=== PATIENT | male | born 1940 | race Caucasian/White ===

== ENCOUNTER → 2017-04-03 | Outpatient (CLI) | payer MEDICARE, BC | LOC: LAB.O 07:29 | PROVIDERS: ATTEND Nurse Practitioner Family | DX: I10 Essential (primary) hypertension (principal); E11.00 Type 2 diabetes mellitus with hyperosmolarity without nonketotic hyperglycemic-hyperosmolar coma (NKHHC) ==

== ENCOUNTER → 2017-10-31 | Outpatient (CLI) | payer MEDICARE, BC ==
--- NOTE | 2017-11-01 12:41 | RAD ---
EXAM DESCRIPTION: Knee,Right Complete CLINICAL HISTORY: 77 years, Male, PAIN IN RIGHT KNEE COMPARISON: None TECHNIQUE: Four views of the right knee with standing views FINDINGS: Total right knee arthroplasty is present. No complicating fracture or dislocation. Bones around the prosthetic components appear normally mineralized with normal trabecular pattern. Normal appearance of medial and lateral compartments on frontal view. Lateral view shows normal position of the patella. Mild posterior superior patellar spurring. Small suprapatellar knee joint effusion. Normal contour of quadriceps and patellar tendons. No abnormal patellar tilt or subluxation on patellar sunrise view. IMPRESSION: Total right knee arthroplasty. Electronically signed by: Carlton Todd MD 11/01/2017 12:39 PM CDT
--- NOTE | 2017-11-01 12:42 | RAD ---
EXAM DESCRIPTION: Pelvis CLINICAL HISTORY: 77 years Male, PAIN IN RIGHT HIP COMPARISON: None. TECHNIQUE: Single AP x-ray view of pelvis and hips FINDINGS: Advanced degenerative disc disease is seen at L4-5 with prominent spurring. Degenerative changes are seen at the SI joints and pubic symphysis. Mild degenerative narrowing of the medial hip joints. No fracture or dislocation. Sacrum appears intact. IMPRESSION: Negative for fracture or dislocation. Electronically signed by: Carlton Todd MD 11/01/2017 12:40 PM CDT
== END ==
LOC: RAD 09:00
PROVIDERS: ATTEND Orthopaedic Surgery
DX: M25.561 Pain in right knee (principal); M25.551 Pain in right hip; Z96.651 Presence of right artificial knee joint

== ENCOUNTER → 2019-11-16 | Outpatient (CLI) | payer MEDICARE, BC ==
--- NOTE | 2019-11-16 17:18 | US ---
EXAM DESCRIPTION: Venous,Lower Extremity RT: ULTRASOUND. CLINICAL HISTORY: THROMBUS COMPARISON: None Available. TECHNIQUE: Sheikh-scale and doppler sonographic evaluation of the deep venous system of the right lower extremity. FINDINGS: Doppler evaluation shows normal color flow and normal phasicity and augmentation of the right common femoral vein, deep femoral vein, femoral vein, popliteal vein, greater saphenous vein, junction with the CFV. Also normal color flow and normal phasicity and augmentation of the peroneal, and posterior tibial vein. The right lower extremity deep veins were completely compressible; normal occlusion with transducer pressure. Sheikh-scale survey showed no echogenic thrombus within these veins. IMPRESSION: 1. Duplex ultrasound evaluation of the right lower extremity deep venous system showing no evidence of thrombosis. Electronically signed by: Jorge Underwood MD 11/16/2019 5:17 PM CDT
== END ==
LOC: US 13:27
PROVIDERS: ATTEND Nurse Practitioner Family
DX: I87.2 Venous insufficiency (chronic) (peripheral) (principal)

== ENCOUNTER 2019-12-05 18:15 | Emergency (ER) | payer MEDICARE, BC ==
[2019-12-05] MEDS ORDERED: IPRATROPIUM BROMIDE NEBS 0.5 MG/2.5 ML VIAL NEB ONE (18:35)
[2019-12-05] MEDS ORDERED: LEVALBUTEROL NEBS 1.25 MG/3 ML VIAL NEB ONE (18:35)
--- NOTE | 2019-12-05 19:03 | RAD ---
EXAM DESCRIPTION: Chest,1 View CLINICAL HISTORY: 79 years Male sob, afib COMPARISON: 01-19 FINDINGS: Heart size appears within normal limits. Density in the lateral left upper lobe concerning for pneumonia. Possibility of underlying mass is not excluded. Question artifact versus small amount of infiltrate in the lateral right midlung. Poor depth of inspiration. No pneumothorax or pleural fluid. IMPRESSION: Abnormal soft tissue in the lateral left upper lobe with an underlying ovoid density. Question pneumonia versus underlying mass. Consider further evaluation with CT Small amount of patchy density also present in the lateral right chest which is indeterminate Electronically signed by: Haydee Barrera MD 12/05/2019 7:02 PM CDT
[2019-12-05] MEDS ORDERED: MAGNESIUM SULFATE PREMIX 2GM 2 GM in PREMIX BAG 1 BAG IVPB ONE (19:09)
[2019-12-05] MEDS ORDERED: METOPROLOL TARTRATE 25 MG TAB PO ONE (19:12)
[2019-12-05] MEDS ORDERED: MAGNESIUM SULFATE PREMIX 2GM 50 ML IVPB ONE (19:18)
--- NOTE | 2019-12-05 20:15 | CT ---
PROCEDURE: Chest w/o Contrast CLINICAL HISTORY: 79 years Male abn cxr, new afib COMPARISON: Chest x-ray study from earlier in the day. TECHNIQUE: Contiguous axial images obtained through the chest without IV contrast. Reformatted images obtained. This exam was performed according to our department optimization program which includes automated exposure control, adjustment of the mA and/or kv according to patient size and/or use of iterative reconstruction technique. FINDINGS: The liver appears slightly heterogeneous. There is a low-density lesion in the left lobe of the liver measuring 0.9 cm which is not characterized on this study. Small hiatal hernia. Coronary artery calcifications. Scattered small lymph nodes in the mediastinum. Atherosclerotic calcifications in the thoracic aorta. There is a spiculated appearing somewhat bilobed mass lesion in the left upper lung. The mass measures approximately 3.1 cm AP diameter by 4.5 cm transverse diameter by 8 cm in height. The lower portion of the mass measures approximately 4.4 cm transverse by 3.1 cm AP by 4.7 cm in height. The mass abuts the lateral left chest wall. There is mild surrounding infiltrate. There may be a small amount of pleural fluid adjacent to the lateral aspect of the mass. No pneumothorax. There are emphysematous changes in the lungs. There is mild scarring/atelectasis in the lungs. There are several small nodular lesions in the right lower lung with the largest measuring 0.5 cm in diameter. There is a calcified granuloma in the right lung with calcified right hilar lymph nodes. IMPRESSION: Mass lesion in the left upper lung with a small amount of surrounding infiltrate. Biopsy is recommended. Small nodular lesions in the right lower lung which are indeterminant. 3. Six month follow-up recommended. The liver appears slightly heterogeneous with a small low-density lesion in the left lobe of the liver which is not completely characterized on this study. Three-phase CT or MRI could be obtained to better evaluate the liver. Electronically signed by: Tk Barrera MD 12/05/2019 8:14 PM CDT
[2019-12-05] MEDS ORDERED: PIPERACILLIN/TAZOBACTAM 3.375 GM in SODIUM CHLORIDE 0.9% 100ML 100 ML IVPB ONE (20:43)
[2019-12-05 20:48] VITALS: BP 135/60; O2SAT 94
--- NOTE | 2019-12-05 20:58 | ED.PDOC ---
History of Present Illness - General Chief Complaint: Respiratory Problem Stated Complaint: Difficulty breathing Time Seen by Provider: 12/05/19 18:16 Source: patient Exam Limitations: no limitations - History of Present Illness Initial Comments: The patient is an 79-year-old male presented emergency room secondary to worsening shortness of breath with mild associated chest tightness particularly over the last couple of days. On further questioning he has had a productive cough and mild shortness of breath for the last 3 or 4 months. He has had intermittent episodes of shortness of breath with exertion. No straight of chest pain. No syncope. No weight loss. He does have a history of COPD, hypertension, type 2 diabetes and low testosterone for which he takes a supplement. 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 The patient is not hypoxic upon arrival but oxygen was applied for comfort. The patient was found to be in atrial fibrillation with RVR with heart rates in the 140s to 150s upon arrival. No known history of any atrial fibrillation. No real fevers. No known coronavirus exposure. Timing/Duration: unsure Severity: moderate Improving Factors: nothing Worsening Factors: movement Associated Symptoms: cough, malaise, shortness of breath Allergies/Adverse Reactions: Allergies NO KNOWN ALLERGY Allergy (Verified 01/21/14 13:14) Home Medications: Ambulatory Orders Albuterol Inhaler [Ventolin Hfa Inhaler] 1 puff INH PRN #0 09/09/13 Albuterol Sulfate 0.083 % IN PRN #0 09/09/13 Hydrochlorothiazide 25 mg PO AM #0 09/09/13 Metformin HCl 500 mg PO NOON #0 09/09/13 Multiple Vitamins W/ Minerals [Centrum Silver] 1 tab PO AM #0 09/09/13 Testosterone Cypionate 100 mg IM PRN #0 09/09/13 Carvedilol 12.5 mg PO DAILY 12/05/19 Furosemide 20 mg PO DAILY 12/05/19 Losartan Potassium 100 mg PO DAILY 12/05/19 Sitagliptin-Metformin HCl [Janumet] 1 tab PO BID 12/05/19 Review of Systems - Review of Systems Constitutional: States: malaise, weakness - Generalized EENTM: States: no symptoms reported Respiratory: States: cough, short of breath Cardiology: States: other - Shortness of breath Gastrointestinal/Abdominal: States: no symptoms reported Genitourinary: States: no symptoms reported Musculoskeletal: States: no symptoms reported Skin: States: no symptoms reported Neurological: States: no symptoms reported Endocrine: States: no symptoms reported All other Systems: No Change from Baseline Past Medical History (General) - Patient Medical History Hx Seizures: No Hx Stroke: No Hx Asthma: No Hx of COPD: Yes Hx Cardiac Disorders: Yes Hx Congestive Heart Failure: No Hx Pacemaker: No Hx Hypertension: Yes Hx Diabetes: Yes Hx Gastroesophageal Reflux: Yes Hx Cancer: No Hx Hepatitis C: No Hx MRSA: No - Vaccination History Hx Tetanus, Diphtheria Vaccination: Yes Hx Influenza Vaccination: Yes Hx Pneumococcal Vaccination: Yes - Social History Hx Tobacco Use: Yes Hx Alcohol Use: No Hx Substance Use: No Hx Physical Abuse: No Hx Emotional Abuse: No - Female History Patient is a Female of Child Bearing Age (10 -59 yrs old): No Family Medical History - Family History Father Living Status: Hx Family Cancer: Yes Physical Exam - Physical Exam General Appearance: Alert, Anxious, Obvious distress Eye Exam: bilateral normal Ears, Nose, Throat: hearing grossly normal - Chronic decreased hearing bilaterally, normal pharynx Neck: full range of motion, supple Respiratory: rales - Mild on the left midlung, other - Mild increased work of breathing. No wheezes. Cardiovascular/Chest: normal peripheral pulses, no edema, irregularly irregular - Tachycardic Peripheral Pulses: radial,right: 2+, radial,left: 2+ Gastrointestinal/Abdominal: non tender, soft Rectal Exam: deferred Back Exam: no CVA tenderness, no vertebral tenderness Extremity: non-tender, normal inspection, no pedal edema, normal capillary refill Neurologic: director technical II-XII nml as tested, alert, normal mood/affect, oriented x 3 Skin Exam: normal color Comments: Vital Signs - 24 hr 12/05/19 12/05/19 12/05/19 18:34 18:54 19:14 Temperature 98.8 F 97.5 F L Pulse Rate [ 105 H 105 H 107 H Left Brachial] Respiratory 20 20 20 Rate Blood Pressure 120/87 123/83 [Left Arm] O2 Sat by Pulse 95 96 Oximetry 12/05/19 20:47 Temperature Pulse Rate [ 85 Left Brachial] Respiratory 18 Rate Blood Pressure 135/60 [Left Arm] O2 Sat by Pulse 94 L Oximetry Progress - Progress Progress: 12/05/19 21:01 The patient is an 79-year-old male presented emergency room secondary to shortness of breath essentially. The patient has mild acute renal insufficiency when compared to his previous laboratory work. This is likely related to diuretics that he takes. The patient has what is most likely secondary polycythemia and may yet need phlebotomy in the near future. More problematic is that the patient has new atrial fibrillation with rapid ventricular rate. He has responded well to a dose of oral metoprolol and a small dose of IV diltiazem. Heart rate has gone from the 140s down to the 90s primarily. Symptoms have essentially resolved. The patient does appear to have a pneumonia in the left upper lobe that is likely surrounding a spiculated mass. The patient is being started on Zosyn here as an antibiotic. Blood and sputum cultures have been done. Vital signs are remaining stable. No blood thinners have been started at this point. We are transferring the patient to [facility] for cardiology evaluation for the new A. fib with RVR. Additionally pulmonology and oncology consultation may be prudent over the next day or 2. The patient did receive a breathing treatment here which should also help somewhat. Transferring for higher level of care. Acceptance is appreciated. No known coronavirus exposure on questioning. The patient is requesting to be transferred by private vehicle. The patient has been advised that we would prefer to send by ambulance as it is a more monitored means of transit. He does understand this but defers at this time stating that he has someone that can drive him. He is capable of making this decision. Blood pressure, heart rate and oxygen saturations are within normal limits without any support at this time. Transit is less than 1 hour. tim skaggs [id number] - Results/Orders Results/Orders: Chest x-ray is concerning for left-sided infiltrate versus mass. CT scan of the chest without contrast shows large left upper lobe likely spiculated mass with surrounding infiltrate. Smaller right lower lobe nodules. See report for details. EKG shows atrial fibrillation with rapid ventricular rate at 123 bpm. Left axis deviation which is not new. Right bundle branch is not new. No definitive ST or T wave changes indicative of acute ischemia when compared to EKG from 5 years ago. QT interval is correspondingly mildly prolonged. Laboratory Tests 12/05/19 12/05/19 12/05/19 18:34 18:34 18:34 WBC 11.1 H RBC 6.59 H Hgb 17.9 Hct 54.6 H MCV 82.8 MCH 27.2 MCHC 32.9 L RDW 15.1 H Plt Count 140 MPV 9.1 Absolute Neuts (auto) 7.80 H Absolute Lymphs (auto) 1.80 Absolute Monos (auto) 1.10 H Absolute Eos (auto) 0.30 Absolute Basos (auto) 0.10 Neutrophils % 69.8 Lymphocytes % 16.3 L Monocytes % 10.1 H Eosinophils % 3.1 Basophils % 0.7 PT 10.5 INR 1.06 PTT (SP) 27.4 D-Dimer, Quantitative < 131 L Sodium 139 Potassium 3.5 L Chloride 102 Carbon Dioxide 28 Anion Gap 12.5 BUN 30 H Creatinine 1.33 H BUN/Creatinine Ratio 22.6 H Random Glucose 159 H Serum Osmolality 287.1 Calcium 10.2 Magnesium Total Bilirubin 0.7 AST 18 ALT 22 Alkaline Phosphatase 48 Creatine Kinase 74 CK-MB (CK-2) 3.2 CK-MB (CK-2) % Not Reportable Troponin I < 0.02 B-Natriuretic Peptide 319.0 H* Serum Total Protein 7.1 Albumin 4.2 Globulin 2.9 Albumin/Globulin Ratio 1.4 TSH 12/05/19 18:34 WBC RBC Hgb Hct MCV MCH MCHC RDW Plt Count MPV Absolute Neuts (auto) Absolute Lymphs (auto) Absolute Monos (auto) Absolute Eos (auto) Absolute Basos (auto) Neutrophils % Lymphocytes % Monocytes % Eosinophils % Basophils % PT INR PTT (SP) D-Dimer, Quantitative Sodium Potassium Chloride Carbon Dioxide Anion Gap BUN Creatinine BUN/Creatinine Ratio Random Glucose Serum Osmolality Calcium Magnesium 1.7 L Total Bilirubin AST ALT Alkaline Phosphatase Creatine Kinase CK-MB (CK-2) CK-MB (CK-2) % Troponin I B-Natriuretic Peptide Serum Total Protein Albumin Globulin Albumin/Globulin Ratio TSH 2.34 - EKG/XRAY/CT CT Ordered: No Departure - Departure Clinical Impression: New onset a-fib, Lung mass, Acute renal insufficiency Pneumonia Qualifiers: Pneumonia type: due to unspecified organism Laterality: right Lung location: upper lobe of lung Qualified Code(s): J18.9 - Pneumonia, unspecified organism Disposition: Transfer to Hospital Departure Forms: ED Discharge - Pt. Copy, Patient Portal Self Enrollment Referrals: ELEAZAR,FLORIAN L IV, [employer] [Primary Care Provider] - 1-2 Weeks Home Medications: Ambulatory Orders Albuterol Inhaler [Ventolin Hfa Inhaler] 1 puff INH PRN #0 09/09/13 Albuterol Sulfate 0.083 % IN PRN #0 09/09/13 Hydrochlorothiazide 25 mg PO AM #0 09/09/13 Metformin HCl 500 mg PO NOON #0 09/09/13 Multiple Vitamins W/ Minerals [Centrum Silver] 1 tab PO AM #0 09/09/13 Testosterone Cypionate 100 mg IM PRN #0 09/09/13 Carvedilol 12.5 mg PO DAILY 12/05/19 Furosemide 20 mg PO DAILY 12/05/19 Losartan Potassium 100 mg PO DAILY 12/05/19 Sitagliptin-Metformin HCl [Janumet] 1 tab PO BID 12/05/19 Transfer to Outside Facility - Transfer Information Decision to Transfer Date: 12/05/19 Decision to Transfer Time: 21:05 Reason for Transfer: specialized care not available Accepting Provider:: dr flores Accepting Facility: [facility]
[2019-12-05 21:07] VITALS: TEMP 98.3
== END 2019-12-05 22:02 | disposition short-term general hospital (02) ==
LOC: ER 18:15
DX: I48.91 Unspecified atrial fibrillation (principal); J44.9 Chronic obstructive pulmonary disease, unspecified; J18.9 Pneumonia, unspecified organism; N28.9 Disorder of kidney and ureter, unspecified; R91.8 Other nonspecific abnormal finding of lung field; I10 Essential (primary) hypertension; E11.9 Type 2 diabetes mellitus without complications; F17.200 Nicotine dependence, unspecified, uncomplicated; Z79.899 Other long term (current) drug therapy
CPT/HCPCS: 71045; 71250; 80053; 82550; 82553; 83735; 83880; 84443; 84484; 85025; 85379; 85610; 85730; 87040; 93005; 94640; J2543; J3475; J7050; J7614; J7644

== ENCOUNTER → 2019-12-11 | Outpatient (CLI) | payer MEDICARE, BC ==
--- NOTE | 2019-12-14 08:19 | RAD ---
EXAM DESCRIPTION: Chest,2 Views CLINICAL HISTORY: SHORTNESS OF BREATH COMPARISON: CT chest December 05, 2019, x-ray chest single view December 05, 2019 TECHNIQUE: PA/lateral FINDINGS: Heart size is normal with normal pulmonary vascularity. No pleural effusion or pneumothorax. Infiltrate in the left upper lobe appears less dense than on previous study December 05, 2019 consistent with mild interval improvement in this area. Patchy infiltrate in the right lung base appears new or worsened compared to previous. No pneumothorax or pleural effusion. Lateral view shows intact sternum and T-spine. IMPRESSION: Bilateral pulmonary infiltrates consistent with pneumonia. Electronically signed by: Carlton Todd MD 12/14/2019 8:17 AM CDT
== END ==
LOC: LAB.O 16:22
PROVIDERS: ATTEND Nurse Practitioner Family
DX: R06.02 Shortness of breath (principal); R91.8 Other nonspecific abnormal finding of lung field

== ENCOUNTER → 2019-12-23 | Outpatient (CLI) | payer MEDICARE, BC ==
--- NOTE | 2019-12-24 08:32 | RAD ---
EXAM DESCRIPTION: Chest,2 Views: HOLLY/ CLINICAL HISTORY: 79 years Male WHEEZING COMPARISON: 2 view chest x-rays December 04 and December 10. TECHNIQUE: Two views. PA and Lateral. FINDINGS: Lungs: Persistent consolidation in the left upper lobe but decreasing in density since the prior study. Stable infiltrate in the right lung base and atelectasis or scarring in the left base. Stable lung volumes. Pleural spaces: No effusion or pneumothorax bilaterally. Heart: Normal size. Pulmonary Vascularity: Not increased. Mediastinum: Not widened. Aorta: Stable atherosclerotic changes. Bony Thorax/Spine: No acute bony thoracic abnormalities. Minimal spondylosis. IMPRESSION: Decreasing infiltrate in the left upper lobe compared to prior chest x-rays. Stable bibasilar infiltrates or scarring. Lung volumes stable. No pulmonary vascular congestion. Electronically signed by: Jorge Underwood MD 12/24/2019 8:30 AM CDT
== END ==
LOC: RAD 10:22
PROVIDERS: ATTEND Nurse Practitioner Family
DX: R06.2 Wheezing (principal)

== ENCOUNTER → 2020-05-03 | Outpatient (CLI) | payer MEDICARE | LOC: YCFC.O 14:34 | PROVIDERS: ATTEND Family Medicine | DX: Z11.59 Encounter for screening for other viral diseases (principal) ==

== ENCOUNTER → 2020-07-27 | Outpatient (CLI) | payer MEDICARE ==
--- NOTE | 2020-07-28 07:48 | MRI ---
EXAM DESCRIPTION: Thoracic Spine w/o Contrast: Magnetic Resonance Imaging. CLINICAL HISTORY: INTERVERTEBRAL DISC DISORDER WITH MYELOPATHY COMPARISON: MRI scan lumbar spine from the same visit. TECHNIQUE: Multiplanar, multiple standard sequences, non contrast MRI, thoracic spine. FINDINGS: Minimal desiccation of the T12-L1 disc with minimal left posterior bulge. No canal or foraminal stenosis. Desiccation of the T8-T9 disc with posterior bulge. No canal or foraminal stenosis. Left side T6-T7 mild endplate changes. Minimal left foraminal narrowing with canal and right foramen is patent. Mild anterolisthesis T3-T4 disc desiccation and minimal disc space loss. Minimal bulge into the left foramen but no canal or foraminal stenosis. Remaining discs with normal signal. Disc spaces are preserved. Canal and foramina are patent. Facet joints are unremarkable. Conus terminates at T12-L1. Cord with normal signal, no compression. T5-T9 dextroscoliosis Paravertebral soft tissues are unremarkable. Hyperintense T1 and T2 circumscribed hemangioma right anterior T10 vertebral body. Unusual marrow signal posterior T3 and T4 vertebral bodies are hypointense on T1 and T2 sequences and hyperintense STIR sequences. Otherwise normal marrow signal in the remaining vertebral bodies and the posterior elements. Vertebral bodies are not compressed at any level. IMPRESSION: 1. Mild disc desiccation and bulging as described in the FINDINGS. No compression. No herniated disc. No canal or foraminal stenosis. Moderate scoliosis. Spondylosis T6-T7 level. 2. Focal abnormal marrow signal in the T3 and T4 vertebral bodies which is bilateral and the vertebral body at T4. No findings of compression type vertebral body fracture. These would be unusual hemangiomas. Correlate for history of metastatic or inflammatory disease. May also be stress injury related to scoliosis. Consider radionuclide bone scan. Electronically signed by: Jorge Underwood MD 07/28/2020 7:47 AM MANUFACTURING TECHNICIAN
--- NOTE | 2020-07-28 16:10 | MRI ---
EXAM DESCRIPTION: Lumbar Spine w/o Contrast : Magnetic Resonance Imaging. CLINICAL HISTORY: INTERVERTEBRAL DISC DISORDER WITH MYELOPATHY COMPARISON: None. TECHNIQUE: Multiplanar, multiple standard sequences, non contrast MRI, lumbar spine. FINDINGS: L5-S1: The disc is well visualized on axial T2 series 501, image 3. L5-S1: Disc desiccation with tiny posterior midline bulge and minimal disc space loss. Hypertrophic changes in the osteophyte and ligamentous and facet joints (canal elements. AP canal diameter 13 mm. Left side Modic type III endplate reactive changes with disc spur complex causing borderline stenosis. Minimal narrowing right foramen. L4-L5: Moderate disc space loss on the right and severe disc space loss on the left. Erosions in the endplates inferior L4 and superior L5. Posterior midline 4 mm bulge of the disc. Disc spur complex on the left encroaching on the foramen and the left L4 nerve. Minimal disc osteophyte bulge into the right foramen with moderate narrowing. Bilateral hypertrophic changes in the canal elements more left than right. AP canal diameter 10 mm. L3-L4: Disc desiccation and minimal disc space loss on the left. Calcification or nitrogen gas in the disc space. Endplate reactive changes Modic type III on the right. Disc osteophyte complex encroaching on the right foramen which is stenotic. Superior and inferior endplate erosions. Mild retrolisthesis. Posterior broad-based disc bulge with midline 4 mm focal bulge. Hypertrophic changes in the canal elements greater on the left. AP canal diameter 8.5 mm. Minimal neural foraminal narrowing. L2-L3: Disc desiccation and minimal disc space loss. Anterior disc erosion and bulging. Canal elements with hypertrophy more on the right. AP canal diameter 13 mm. Right side Modic type II endplate reactive changes. Disc space loss and calcification versus gas hypoechoic signal in the disc. Mild foraminal narrowing. Left foramen is patent. L1-L2: Disc desiccation with disc space maintained. Anterior disc bulge. Minimal bulge into the left foramen. Right foramen patent. Minimal hypertrophy of the posterior flavum ligaments. Canal patent. T12-L1: Normal signal of the disc with disc space maintained. No bulging. Minimal hypertrophy of the flavum ligaments. Mild foraminal narrowing on the right. Left foramen is patent. Levoscoliosis of the spine. Paravertebral soft tissues paravertebral muscle atrophy. Ectasia of the abdominal aorta.. Diameter of the proximal abdominal aorta is 3.1 x 3.0 cm. Distal cord normal signal and caliber. Possible cyst in the inferior L3 endplate. Otherwise normal marrow signal in the remaining vertebral bodies and the posterior elements. Vertebral bodies are not compressed at any level. IMPRESSION: 1. Multiple levels of desiccated discs, bulging disc, endplate spondylosis, and hypertrophic changes in the posterior flavum ligamentous and facet joints. 2. Spondylosis at L5-S1 with left side foraminal stenosis. 3. Borderline mild central canal stenosis is multifactorial at L4-5. Left neural foraminal stenosis. 4. Mild to moderate central canal stenosis L3- L4 right foraminal stenosis. Advanced spondylosis on the right. 5. Please refer to FINDINGS for discussion of results at specific disc space levels. Electronically signed by: Jorge Underwood MD 07/28/2020 4:08 PM [facility]
== END ==
LOC: MRI 08:42
PROVIDERS: ATTEND Nurse Practitioner Family
DX: M51.05 Intervertebral disc disorders with myelopathy, thoracolumbar region (principal); M47.14 Other spondylosis with myelopathy, thoracic region; M41.9 Scoliosis, unspecified; R93.7 Abnormal findings on diagnostic imaging of other parts of musculoskeletal system

== ENCOUNTER → 2020-08-15 | Outpatient (CLI) | payer MEDICARE | LOC: LAB.O 11:34 | PROVIDERS: ATTEND Internal Medicine Hematology & Oncology | DX: C34.12 Malignant neoplasm of upper lobe, left bronchus or lung (principal) ==